=== PATIENT | female | born 1990 ===

== ENCOUNTER 2017-08-25 12:10 | Emergency (ER) | payer BC ==
[2017-08-25 12:10] VITALS: BMI 24.7
[2017-08-25 12:28] VITALS: BP 116/71; PULSE 80; RESP 16; TEMP 97; O2SAT 98
--- NOTE | 2017-08-25 12:52 | ED PDOC ---
HPI: Female Pain Time Seen by Provider: 08/25/17 12:34 Chief Complaint (Nursing): Female Genitourinary Chief Complaint (Provider): Female Genitourinary History Per: Patient History/Exam Limitations: no limitations Current Symptoms Are (Timing): Still Present Additional Complaint(s): 26 y/o female presents to the ED complaining of back pain and left pelvic pain. She notes that the pain is dull at first but overtime the pain is more pbvious. Patient also notes a lump in the pelvic. Denies vaginal bleeding, vaginal discharge or any further medical complaints. PMD: Molina Thomas MD Past Medical History Reviewed: Historical Data, Nursing Documentation, Vital Signs Vital Signs: Last Vital Signs Temp 97.0 F L 08/25/17 12:24 Pulse 80 08/25/17 12:24 Resp 16 08/25/17 12:24 BP 116/71 08/25/17 12:24 Pulse Ox 98 08/25/17 12:24 - Medical History PMH: Denies: HIV - Family History Family History: States: Stroke - Social History Current smoker - smoking cessation education provided: No (Never smoked) Alcohol: None Drugs: Denies - Home Medications Home Medications: Ambulatory Orders Medication Instructions Recorded Dicyclomine [Bentyl] 10 mg PO QID PRN 07/12/17 Famotidine [Pepcid] 20 mg PO Q12H 07/12/17 traMADol [Ultram] 50 mg PO Q6H PRN #15 tab 08/25/17 - Allergies Allergies/Adverse Reactions: Allergies Allergy/AdvReac Type Severity Reaction Status Date / Time No Known Allergies Allergy Verified 08/25/17 12:24 Review of Systems ROS Statement: Except As Marked, All Systems Reviewed And Found Negative Genitourinary Female: Positive for: Pelvic Pain (Left pelvic pain). Negative for: Vaginal Discharge, Vaginal Bleeding Musculoskeletal: Positive for: Back Pain Physical Exam - Reviewed Nursing Documentation Reviewed: Yes Vital Signs Reviewed: Yes - Physical Exam Appears: Positive for: Non-toxic, No Acute Distress Skin: Positive for: Normal Color, Warm, Dry Respiratory: Negative for: Accessory Muscle Use, Respiratory Distress Pelvic Exam: Positive for: Other (left lower pelvic tenderness, palpable mass noted) Back: Positive for: Normal Inspection Extremity: Positive for: Normal ROM Neurologic/Psych: Positive for: Alert, Oriented (x3) - ECG O2 Sat by Pulse Oximetry: 98 (RA) Pulse Ox Interpretation: Normal Medical Decision Making Medical Decision Making: Time: 12:55 Plan: Urine dipstick Urine Chlamydia RNA, TMA Pelvis US US normal. Scribe Attestation: Documented by Casie Estrada acting as a scribe for Jessie Nuñez PA-C. MD Scribe Attestation: All medical record entries made by the Scribe were at my direction and personally dictated by me. I have reviewed the chart and agree that the record accurately reflects my personal performance of the history, physical exam, medical decision making, and the department course for this patient. I have also personally directed, reviewed, and agree with the discharge instructions and disposition. Disposition - Clinical Impression Clinical Impression: Pelvic pain - Patient ED Disposition Is Patient to be Admitted: No Counseled Patient/Family Regarding: Diagnosis, Need For Followup, Rx Given - Disposition Referrals: Chidi Olmstead MD [Staff Provider] - [facility] [Outside] Disposition: Routine/Home Disposition Time: 14:51 Condition: GOOD Prescriptions: traMADol [Ultram] 50 mg PO Q6H PRN #15 tab PRN Reason: Pain Instructions: Pelvic Pain in Women (ED) Forms: [employer] (Armenian), [facility] ED School/Work Excuse
--- NOTE | 2017-08-25 15:06 | US ---
HISTORY: Left-sided pelvic pain. Duration of symptoms: Two weeks LMP 08/09/2017. COMPARISON: None available. TECHNIQUE: Transabdominal only. Real-time technique with 2D, duplex and color Doppler FINDINGS: UTERUS: Measures 3.9 x 3.5 x 8.3 cm. Normal in size and appearance. No fibroid or other mass lesion seen. ENDOMETRIUM: Measures 5.9 mm in diameter. No ultrasound findings to suggest gestational sac, fluid, debris, mass or polyp or other pathologic process within the endometrium. CERVIX: No cervical abnormality identified. RIGHT OVARY: Measures 2 x 2.3 x 3.1 cm. No solid mass. Normal flow. LEFT OVARY: Measures 2.1 x 2.5 x 3.1 cm. No solid mass. Normal flow. FREE FLUID: No significant free fluid noted. OTHER FINDINGS: None. IMPRESSION: Unremarkable pelvic ultrasound.
== END 2017-08-25 15:02 | disposition home or self-care (01) ==
LOC: H.ER 12:10
DX: R10.2 Pelvic and perineal pain (principal)